=== PATIENT | male | born 1990 | race Caucasian/White ===

== ENCOUNTER 2017-01-21 22:05 | Emergency (ER) | payer SELFPAY ==
[~2017-01-21] VITALS: Ht 172.7 cm; Wt 84.5 kg
[~2017-01-21 22:05] MED LIST: NOCURR
[2017-01-21 22:10] VITALS: BP 139/88
== END 2017-01-21 23:04 | disposition left against medical advice (07) ==
LOC: EMS 22:07
DX: R53.1 Weakness (principal); Z53.21 Procedure and treatment not carried out due to patient leaving prior to being seen by health care provider